=== PATIENT | female | born 1945 | race Caucasian/White ===

== ENCOUNTER → 2020-09-27 | Outpatient (CLI) | payer OTHER ==
[~2020-09-27] MED LIST: BENTYL 10 MG CA10 MG PO; CYCLOBENZAPRINE10 MG PO; EUTHYROX100 MCG PO; MAGNESIUM250 M1 PO; METFORMIN HCL500 MG PO; METOCLOPRAMIDE 55 M1 PO; OMEPRAZOLE40 MG PO; OXYBUTYNIN CHLO10 MG PO; OXYCODONE HCL5 MG PO; POTASSIUM GLUC500 MG PO; PROAIR HFA8.5 GM INH; SINGULAIR 10 MG10 M1 PO; SUPER B-50 COM1 EACH PO; SYMBICORT80 MCG/4.1 INH; VITAMIN D350 MC3 PO; ZYRTEC10 M5 PO
== END ==
LOC: LAB 12:11
PROVIDERS: ATTEND Orthopaedic Surgery
DX: Z01.812 Encounter for preprocedural laboratory examination (principal); Z20.828 Contact with and (suspected) exposure to other viral communicable diseases

== ENCOUNTER 2020-10-03 10:34 | Observation (INO) | payer OTHER ==
[2020-09-27 11:47] LABS: URINE BILIRUBIN NEGATIVE (Negative); URINE BLOOD TRACE (Negative); URINE CLARITY CLEAR; URINE COLOR YELLOW; URINE GLUCOSE-RANDOM* NEGATIVE (Negative); URINE KETONES NEGATIVE (Negative); URINE LEUKOCYTES-REFLEX 2+ (Negative); URINE NITRITE-REFLEX NEGATIVE (Negative); URINE PROTEIN (DIPSTICK) NEGATIVE (Negative); URINE SPECIFIC GRAVITY 1.015 (1.005-1.035); URINE UROBILINOGEN 0.2 E.U./dl (0.2-1.0)
[2020-09-27 11:50] LABS: HEMOGLOBIN 12.9 gm/dL (12.0-15.0); MCH 29.2 pg (26.0-34.0); MCHC 33.2 g/dL (28.0-37.0); MCV 88.1 fL (80.0-100.0); RBC 4.42 mil/uL (4.20-5.00); RDW 13.8 % (10.5-14.5); WBC 5.1 thou/uL (4.0-11.0)
[2020-09-27 11:55] LABS: SQUAMOUS >10 Many /LPF (0-3)
[2020-09-27 11:56] LABS: ALBUMIN 3.8 g/dL (3.4-5.0); CALCIUM 9.5 mg/dL (8.5-10.1); CASTS None Seen /LPF (None Seen); CREATININE 0.9 mg/dL (0.6-1.0); CRYSTALS None Seen /LPF (None Seen); POTASSIUM 3.8 mmol/L (3.5-5.1)
[2020-09-27 11:58] LABS: URINE RBC 0-2 Rare /HPF (0-2)
[2020-09-27 12:00] LABS: RENAL EPITHELIAL CELLS 0-3 Few /LPF (None Seen); TRANSITIONAL EPITHEL CELL 0-3 Few /LPF (None Seen); URINE WBC-REFLEX 6-15 Few /HPF (0-5)
--- NOTE | 2020-09-27 12:25 | EKG ---
[facility] [place] [address] ELECTROCARDIOGRAM REPORT Name: RAMYA COLUNGA Room #: PRE [facility]..#: [id number] Admission: Attend Phys: Tom Varma MD Discharge: Date of : 45 Report #: [id number] THIS REPORT FOR: cc: FAM - Family physician unknown FAM - Family physician unknown Chong Suero MD [facility] ~ THIS REPORT FOR: //name// [facility] Test Date: 2020-09-27 Test Time: 11:39:44 Pat Name: RAYMA COLUNGA Department: Room: Gender: F [employer] Lot Attendant: Anni REID : [id number] Requested By: Tom Varma Order Number: [id number] MD: Chong Suero Measurements Intervals Almond Rate: 83 P: -18 SD: 143 QRS: -18 QRSD: 89 T: 11 QT: 353 QTc: 415 Interpretive Statements Sinus rhythm Borderline left axis deviation No previous ECG available for comparison Electronically Signed On 09-27-2020 12:25:11 WIRE STRIPPER by Chong Suero [email or web address] <ELECTRONICALLY SIGNED> By: Chong Suero MD, FAC 09/27/20 1225 1139 1139 Chong Suero MD, FACC /EPI
[2020-09-28 00:06] LABS: GLYCOHEMOGLOBIN (HGB A1C) 6.2 % (4.8-5.6)
[~2020-10-03] VITALS: Ht 160 cm; Wt 70.3 kg
--- NOTE | ~2020-10-03 | O ---
[address] [address] OPERATIVE REPORT Name: RAMYA GARCIA Room #: 446-[facility] Rah Simeon#: [id number] Admission: 10/03/20 Attend Phys: Tom Varma MD Discharge: Date of : 45 Report #: [id number] THIS REPORT FOR: cc: FAM - Family physician unknown FAM - Family physician unknown Tom Varma MD ~ CC: [facility] unknown VIPIN Varma DATE OF SERVICE: 10/03/2020 PREOPERATIVE DIAGNOSIS: Right knee osteoarthritis. POSTOPERATIVE DIAGNOSIS: Right knee osteoarthritis. PROCEDURES: 1. Right total knee arthroplasty using Navio robotic assistance. 2. Hardware removal from the right tibia of an ACL interference screw. SURGEON: Tom Varma MD. FIREFIGHTER MARINE: Lilo Alexander PA-C. INDICATIONS FOR FIREFIGHTER MARINE: Throughout the case, extensive retraction and manipulation of the knee was required. This was afforded to me by my credit assistant. ANESTHESIA: LMA with adductor canal block. IMPLANTS: [employer]hew size 4 Journey II BCS cobalt chrome femur, size 3 tibia, size 9 polyethylene, size 29 patella. TOURNIQUET TIME: 53 minutes. ESTIMATED BLOOD LOSS: 25 mL. COMPLICATIONS: None. SPECIMENS: None. CONDITION UPON LEAVING THE OPERATING ROOM: Stable. INDICATIONS FOR PROCEDURE: The patient is a 75-year-old female with right knee osteoarthritis. She had failed conservative measures for this and after discussion with her, she elected for right total knee arthroplasty. She had a history of a right ACL reconstruction with metallic tibial and femoral [facility] [address] [place] [address] OPERATIVE REPORT Name: RAMYA GARCIA Room #: 446-[facility] Rah Simeon#: [id number] Admission: 10/03/20 Attend Phys: Tom Varma MD Discharge: Date of : 45 Report #: [id number] interference screws and we discussed the possible need for hardware removal if necessary. DESCRIPTION OF PROCEDURE: Risks, benefits, alternatives and complications were discussed in detail with the patient including but not limited to risk of anesthesia, risk of damage to nerves, arteries, blood vessels, risk for infection, bleeding, risk for continued knee pain, need for reoperation. Informed consent was obtained from the patient. Right knee was appropriately marked in the preoperative holding area. IV Ancef was given for preoperative antibiotics. She was brought to the operating room and placed in supine position on operating room table. LMA anesthesia was induced without complication. Tourniquet was placed on the right thigh. Right lower extremity was prepped and draped in normal sterile fashion. Timeout was performed properly identifying the patient and procedure as well as the instrumentation. All in the operating room were in agreement. Right lower extremity was exsanguinated, tourniquet was inflated. Tourniquet time was 53 minutes. Standard midline approach to the knee was made with 10 blade through the skin. Dissection was taken down sharply to the fascia and deep flaps were developed medially and laterally. Fresh 10 blade was used to make a medial parapatellar arthrotomy and there was severe osteoarthritis of the knee. ACL and PCL were removed sharply. The tibial interference screw was then palpated, dissected out and removed with a screwdriver. Reference pins were placed in the femur and the tibia. The knee was then digitally mapped using the Context[employer]ane robotic system. Intraoperative plan was made and we sized the size 4 femur with size 3 tibia with a size 10 spacer. After acceptance of the intraoperative plan, the distal femoral cut was made with a Navio bur. Distal femoral cutting block was placed and the chamfer cuts were made. Attention was turned to the tibia. Remainder of the menisci were removed with Bovie cautery. Tibial resection guide was pinned in place using the Navio for placement and tibial resection was made. After this, flexion and extension gaps were checked and found to have good balance in flexion and extension both medially and laterally. Tibia was sized, found to be a size 3. Size 3 tibial trial was placed, pinned and punched. Size 4 femoral trial was placed and the box cut was made. This was then trialed with a size 9 polyethylene. The knee was taken through range of motion, found to have good balance medially and laterally throughout range of motion both digitally as well as manually. A 9 mm was resected from the posterior surface of the patella and a size 29 patellar trial button was placed. Knee was taken through range of motion, found to be stable, found to have good patellar tracking. Trial components were removed. Bony ends were thoroughly irrigated with normal saline. Final size 3 tibia, size 4 Journey II BCS cobalt chrome femur and a size 29 patella were cemented in place using the standard cementation techniques. While the cement cured, a periarticular injection consisting of morphine, ropivacaine, epinephrine and Toradol was placed around the knee joint capsule. After the cement cured, tourniquet was deflated and hemostasis was obtained with Bovie cautery. Final size 9 polyethylene was placed. A gram of vancomycin was placed deep in the joint. Fascia was closed [facility] [address] [place] [address] OPERATIVE REPORT Name: RAMYA GARCIA Room #: 446-P [facility] Rah Simeon#: [id number] Admission: 10/03/20 Attend Phys: Tom Varma MD Discharge: Date of : 45 Report #: [id number] with 0 Vicryl, skin was closed with 2-0 Vicryl, skin staple and a CHANDRA dressing was applied. The patient tolerated this procedure well and went to recovery room under care of anesthesia postoperatively. By: 1731 1739 Tom Varma MD /nt
[2020-10-03 11:56] VITALS: BP 136/59
[2020-10-03 16:42] VITALS: BP 149/88
--- NOTE | 2020-10-03 18:39 | NUR ---
PATIENT ADMITTED FROM OR WITH RIGHT TOTAL KNEE, CHANDRA DRESSING TO RIGHT KNEE, POLAR CARE, KNEE HIGH SERVANDO COTTON, SCD'S. PATIENT C/O NAUSEA, ZOFRAN 4MG IV GIVEN. PATIENT C/O HEADACHE 8/10 AND RIGHT KNEE PAIN 7/10. PATIENT HAS RIGHT FOREARM IV IN PLACE. ADMISSION COMPLETED, REPORT GIVEN TO ELIZABETH/JUAN PABLO.
[2020-10-03 19:37] VITALS: BP 136/45
[2020-10-03 19:46] VITALS: BP 136/45
[2020-10-04 04:13] VITALS: BP 114/45
[2020-10-04 04:27] VITALS: BP 114/56
--- NOTE | 2020-10-04 05:47 | NUR ---
PT AOX4. PT REPORTS 3/10 HEADACHE PAIN AND 5/10 RIGHT KNEE PAIN. PT DENIES SOB WHILE ON ROOM AIR. PT RECEIVING PRN PO OXYCODONE Q4HR WITH PRN PO APAP Q3HR/Q6HR AND PRN PO TRAMADOL Q4HR AVAILABLE. PT TOLERATING PO INTAKE OF FLUIDS AND REGULAR DIET WITHOUT ISSUE. PT AMBULATING WITH X1 ASSIST, WALKER, AND GAIT BELT TO BEDSIDE COMMODE. PT NOTED TO HAVE WEAKNESS IN RLE. PT DENIES NUMBNESS AND TINGLING. CAPILLARY REFILL INTACT, LESS THAN 3SEC IN ALL EXTREMITIES, ALL PERIPHERAL PULSES 2+. FREQUENT REPOSITIONING ENCOURAGED, PT NOTED TO SHIFT INDEPENDENTLY WHILE IN BED. PT ENCOURAGED TO NOTIFY STAFF FOR ALL NEEDS, CALL LIGHT WITHIN REACH, BED ALARM ON, BED IN LOWEST POSITION, ROOM REMAINS NEAR NURSES STATION, FREQUENT MONITORING WILL CONTINUE.
[2020-10-04 06:07] LABS: HEMATOCRIT 32.3 % (37.0-47.0); HEMOGLOBIN 10.8 gm/dL (12.0-15.0); MCH 29.6 pg (26.0-34.0); MCHC 33.5 g/dL (28.0-37.0); MCV 88.5 fL (80.0-100.0); RBC 3.65 mil/uL (4.20-5.00); RDW 13.9 % (10.5-14.5)
[2020-10-04 14:39] VITALS: BP 127/45
[2020-10-04 14:40] VITALS: BP 107/38
--- NOTE | 2020-10-04 15:22 | NUR ---
ON-GOING ASSESSMENT: CM REVIEWED CHART AND SPOKE WITH PT. PT IS S/P KNEE REPLACEMENT. PT REPORTS LIVING IN A PATION HOME WITH NO STEPS WITH HER . PT REPORTS SHE HAS A CANE AND WALKER FOR AMBULATION. PT REPORTS THAT SHE HAS OUTPATIENT THERAPY ARRANGED FOR TOMORROW SOMEWHERE IN [place] AT 3PM. PT REPORTS THAT SHE DOES NOT ANTICIPATE HAVING ANY NEEDS FROM CM. PT IS TO WORK WITH THERAPY THIS PM AND WILL LIKELY DISCHARGE HOME WITH NO NEEDS.
--- NOTE | 2020-10-04 19:26 | NUR ---
PT IS AOX4, VSS, PAIN IS CONTROLLED WITH ORAL PAIN ANALGESIC. PT DID NOT HAVE A BOWEL MOVEMENT THIS SHIFT. PT TOLERATING DIET WELL, CALLS APPROPRIATELY. NO DISTRESS NOTED. WILL CONTINUE TO MONITOR.
[2020-10-04 19:38] VITALS: BP 121/74
[2020-10-04 22:15] VITALS: BP 121/74
[2020-10-05 03:52] VITALS: BP 124/63
--- NOTE | 2020-10-05 04:48 | NUR ---
PT AOX4. PT REPORTS 5-7/10 PAIN IN RIGHT KNEE. PT DENIES SOB WHILE ON ROOM AIR. PT RECEIVING PRN PO OXYCODONE Q4HR WITH PRN PO TRAMADOL Q4HR AND PRN PO APAP Q3HR/Q6HR AVAILABLE. PT MAINTAINS POLAR PACK TO RIGHT KNEE. PT DENIES NUMBNESS AND TINGLING, SENSATION INTACT TO ALL EXTREMITIES, CAPILLARY REFILL LESS THAN 3SEC IN ALL EXTREMITIES, +2 PULSES IN ALL EXTREMITIES. PT AMBULATING WITH X1 ASSIST, WALKER AND GAIT BELT TO BEDSIDE COMMODE. PT NOTED TO HAVE WEAKNESS WITH AMBULATION. PT TOLERATING PO INTAKE OF FLUIDS AND CARB CONTROLLED DIET WITHOUT ISSUE. PT REPORTS NAUSEA X1 WITHOUT EMESIS. PT RECEIVING SCHEDULED REGLAN WITH PRN IV ZOFRAN Q6HR AND PRN PO REGLAN Q6HR AVAILABLE. PT NOTED TO AWAKEN WITH CONFUSION, EASILY REORIENTED, NOTED TO GO BACK TO SLEEP WITHOUT ISSUE. FREQUENT REPOSITIONING ENCOURAGED. PT NOTED TO SHIFT INDEPENDENTLY WHILE IN BED. PT ENCOURAGED TO NOTIFY STAFF FOR ALL NEEDS, CALL LIGHT WITHIN REACH, BED ALARM ON, ROOM REMAINS NEAR NURSES STATION, FREQUENT MONITORING WILL CONTINUE.
[2020-10-05 06:17] LABS: HEMATOCRIT 31.6 % (37.0-47.0); HEMOGLOBIN 10.5 gm/dL (12.0-15.0); MCH 29.3 pg (26.0-34.0); MCHC 33.2 g/dL (28.0-37.0); MCV 88.3 fL (80.0-100.0); RBC 3.58 mil/uL (4.20-5.00); RDW 13.8 % (10.5-14.5); WBC 5.7 thou/uL (4.0-11.0)
[2020-10-05 07:55] VITALS: BP 113/47
--- NOTE | 2020-10-05 13:19 | NUR ---
ON-GOING ASSESSMENT: CM REVIEWED CHART. PT IS CONTIUING TO WORK WITH PHYSICAL THERAPY AND IS TO WORK WITH THIS AFTERNOON. IF PATIENT PASSES SHE MAY BE ABLE TO DISCHARGE TODAY IF NOT PATIENT WILL DISCHARGE HOME TOMORROW. PT HAS EQUIPMENT NEEDED AT HOME AND OUT PATIENT THERAPY ARRANGED FOR THURSDAY.
[2020-10-05 14:45] VITALS: BP 113/47
--- NOTE | 2020-10-05 17:06 | NUR ---
ASSUMED CARE AT 0700. PT IS A&0 X4. SERVANDO/SCD ARE IN PLACE. POLAR CARE IS IN PLACE AND REFILLED. PT HAS NONPRODUCTIVE COUGH WITH NO FEVER. PT DENIES NUMBNESS, SOA, OR DISCOMFORT. PT COMPLAINS OF PAIN. PT WAS GIVEN PAIN MEDICATION. FALL PRECAUTION. CALL LIGHT WITHIN REACH. PT WAS D/C . PT WAS EDUCATED ON HOW TO USE SERVANDO HOSE AND POLAR CARE AND HOW TO TAKE A SHOWER WITH DRESSING. PT NUTRITION WAS NOT ADEQUATE BUT PT DID EAT PUDDING FOR LUNCH. BEFORE D/C , IV WAS SHOWING NO SIGNS OF REDNESS OR SWELLING. AFTER D/C, PT IV WAS D/C
== END 2020-10-05 17:14 | disposition home or self-care (01) ==
LOC: OR → TBA 10:41 → OR 10:47 → 4S 16:40
PROVIDERS: ADMIT Orthopaedic Surgery; ATTEND Orthopaedic Surgery
DX: M17.11 Unilateral primary osteoarthritis, right knee (principal); Z47.2 Encounter for removal of internal fixation device
CPT/HCPCS: 50010; 50101; 50415; 50954; 51130; 51225; 51320; 51412; 53000; 53078; 56528; 57095; 57103; 57110; 57127; 57180; 58239; 62110; 62900; 64043; 70005

== ENCOUNTER → 2020-11-09 | Outpatient (CLI) | payer OTHER | LOC: ULTRA 13:19 | PROVIDERS: ATTEND Orthopaedic Surgery | DX: M71.21 Synovial cyst of popliteal space [Baker], right knee (principal); M25.461 Effusion, right knee; M25.861 Other specified joint disorders, right knee ==